=== PATIENT | female | born 1985 | race Caucasian/White ===

== ENCOUNTER 2022-09-27 01:00 | Emergency (ER) | payer MEDICAID ==
[~2022-09-27] VITALS: Ht 149.9 cm; Wt 84.8 kg
[2022-09-27 01:07] VITALS: BP 147/119; PULSE 86; RESP 16; TEMP 97.9; O2SAT 100
--- NOTE | 2022-09-27 01:14 | NUR ---
TO LOBBY FOLLOWING TRIAGE AFTER OBTAINING UA
--- NOTE | 2022-09-27 03:03 | NUR ---
PT TO BED 10
[2022-09-27 03:25] VITALS: BP 139/92; PULSE 84; RESP 16; TEMP 97.9; O2SAT 96
--- NOTE | 2022-09-27 03:25 | NUR ---
Patient is a 37/F who came in due to hematuria associated with dysuria, fever/chills and suprapubic tenderness. No nausea/vomiting noted. PMHx: Denies NKA
[2022-09-27 03:34] LABS: APPEARANCE,URINE CLOUDY (CLEAR); BILIRUBIN,URINE NEGATIVE (NEGATIVE); BLOOD, URINE 3+ (NEGATIVE); COLOR,URINE RED (YELLOW); LEUKOCYTE ESTERASE ,URINE TRACE (NEGATIVE); NITRITE, URINE POSITIVE (NEGATIVE); PH,URINE 6.5 (5.0-9.0); UGLUCOSE 3+ (NEGATIVE)
[2022-09-27 03:54] LABS: RBC,URINE TOO NUMEROUS TO COUN /HPF (0-5)
--- NOTE | 2022-09-27 04:24 | NUR ---
Dr. Marsh examining patient.
[2022-09-27] MEDS ORDERED: PYR100 PO (04:30)
[2022-09-27] MEDS ORDERED: CEPH-588 PO (04:30)
--- NOTE | 2022-09-27 04:40 | NUR ---
Patient discharged with v/s stable. Written and verbal after care instructions given and explained. Patient alert, oriented and verbalized understanding of instructions. Ambulatory with steady gait. All questions addressed prior to discharge. ID band removed. Patient advised to follow up with PMD. Rx of Keflex and Pyridium given. Patient educated on indication of medication including possible reaction and side effects. Opportunity to ask questions provided and answered.
== END 2022-09-27 04:40 | disposition home or self-care (01) ==
LOC: MED 01:00
DX: N30.01 Acute cystitis with hematuria (principal)
CPT/HCPCS: 81001; 81025; 87086; 99283